=== PATIENT | male | born 1985 | race Caucasian/White ===

== ENCOUNTER 2019-03-31 19:43 | Emergency (ER) | payer SELFPAY ==
[2019-03-31 20:14] VITALS: BP 139/86
--- NOTE | 2019-03-31 20:17 | Emergency Department Report ---
Chief Complaint: Wound/Laceration Stated Complaint: R MIDDLE FINGER LACERATION Time Seen by Provider: 03/31/19 20:09 - HPI History of Present Illness: pt presents to the ED for right middle finger laceration that occurred just PIECE HAND the patient states he was cutting meat with a kitchen knife and cut his finger he is unsure of his last tetanus he states that there was a heavy amount of bleeding, but denies any pulsating able to move the digit no PMHx no allergies to medications occ drinker non smoker no drug use bleeding controlled with pressure dressing MSE screening note: Focused history and physical exam performed. Due to findings the following was ordered: tetanus
== END 2019-04-01 00:05 | disposition left against medical advice (07) ==
LOC: ED 19:43
DX: S61.212A Laceration without foreign body of right middle finger without damage to nail, initial encounter (principal); Z53.21 Procedure and treatment not carried out due to patient leaving prior to being seen by health care provider; W45.8XXA Other foreign body or object entering through skin, initial encounter; Y93.89 Activity, other specified; Y92.89 Other specified places as the place of occurrence of the external cause; Y99.8 Other external cause status